=== PATIENT | female | born 1960 | race Caucasian/White ===

== ENCOUNTER → 2023-08-08 11:19 | Outpatient (REF) | payer MEDICARE, OTHER, SELFPAY ==
[2023-08-08 12:50] LABS: % Eosinophils 1.8 % (0-6); % Immature Granulocytes 1.2 % (0-0.5); % Monocytes 8.2 % (1.7-9.3); % Neutrophils 68.8 % (42.2-75.2); Absolute Basophils 0.1 10^3/uL (0-0.2); Absolute Eosinophils 0.1 10^3/uL (0-0.7); Absolute Immature Granulocytes 0.1 10^3/uL (0-0.05); Absolute Lymphocytes 1.4 10^3/uL (1.2-3.4); Absolute Monocytes 0.6 10^3/uL (0.1-0.6); Hematocrit 40.2 % (37.0-47.0); Hemoglobin 13.4 g/dL (12.0-16.0); Mean Corp Hgb Conc. 33.3 g/dL (33.0-37.0); Mean Corpuscular Hgb 32.8 pg (27.0-31.0); Mean Corpuscular Volume 98.3 fL (81.0-99.0); Mean Platelet Volume 9.5 fL (7.4-10.4); Nucleated Red Blood Cells % 0 %; Platelet Count 268 10^3/uL (130-400); Red Blood Cell Count 4.09 10^6/uL (4.20-5.40); Urine Albumin 3+ (Neg - Trace); Urine Bilirubin 1+ (Negative); Urine Character Bloody (Clear); Urine Color Red; Urine Glucose Negative (Negative); Urine Ketone 1+ (Negative); Urine Leukocyte Trace (Negative); Urine Nitrite Negative (Negative); Urine Occult Blood 4+ (Negative); Urine Urobilinogen Negative (Neg - 1+); White Blood Cell Count 7.3 10^3/uL (4.8-10.8)
[2023-08-08 12:58] LABS: PT 36.5 Sec (11.4-14.6)
[2023-08-08 13:09] LABS: Urine Mucus Few; Urine Red Blood Cell >100 /HPF (0-2); Urine Squamous Cell 0-2 /LPF (Few)
[2023-08-08 13:11] LABS: Urine Bacteria Few (Negative)
== END ==
LOC: REG 11:19
PROVIDERS: ATTENDING PHYSICIAN Internal Medicine Cardiovascular Disease; FAMILY PHYSICIAN Nurse Practitioner Adult Health
DX: Z95.2 Presence of prosthetic heart valve (principal); Z79.01 Long term (current) use of anticoagulants; R31.9 Hematuria, unspecified
CPT/HCPCS: 36415; 81003; 81015; 85025; 85610; 87077; 87086

== ENCOUNTER 2023-08-09 08:46 | Emergency (ER) | payer MEDICARE, OTHER, SELFPAY ==
[2023-08-09 08:50] VITALS: BP 153/90
--- NOTE | 2023-08-09 09:25 | ED.GENMED ---
History of Present Illness
General
Chief Complaint: Urinary Symptoms
Source: patient
Exam Limitations: none
Time Seen by Provider: 08/09/23 09:04
Nursing documentation reviewed up to this point in time: agreed with
Travel History
Have you had any contact with someone who has COVID-19?: No
Do you have any symptoms of coronavirus? Fever > 100 degrees, chills, cough, shortness of breath, sore throat, loss of taste or smell, muscle aches, or headache?: No
History of Present Illness
History of Present Illness:
Patient is a 63 female who presents to the ER for evaluation of hematuria. Patient started with hematuria 2 days ago. She is on Coumadin for mechanical valve. She saw her mint machine operator, Dr. Sharmaine Randle yesterday and had her INR checked which
was 3.6. She also reports she had a hemoglobin checked and it was normal. She presents today because of persistent hematuria. She denies any urinary frequency urgency or dysuria. She denies any back pain abdominal pain.
Past History
Past History
ED Past Medical History: HTN, Valvular disease (), Psychiatric (Anxiety, depression), Other (Hypertension, colon polyps, uterine fibroid) and Other (Vertigo)
ED Past Surgical History: Cardiac (AVR), and Gynecological (Endometrial ablation 2002)
Social History
Tobacco: Non-smoker
Alcohol: None
Drug: None
Personal:
Living: with family
Employment: Employed (RN)
Family History
Family History: Other (nc)
Review of Systems
Review of Systems
Allergies reviewed?: Yes
All Other Systems: ROS reviewed and negative except as documented in HPI and ROS
Constitutional: Reports no symptoms
Respiratory: Reports no symptoms
Cardiac: Reports no symptoms
ABD/GI: Denies abdominal pain, nausea or vomiting
: Reports bleeding; Denies dysuria, frequency, flank pain, incontinence, difficulty voiding, urgency or discharge
Musculoskeletal: Reports no symptoms
Skin: Reports no symptoms
Neurological: Reports no symptoms
Hematologic/Lymphatic: Reports no symptoms
Psychiatric: Reports no symptoms
Phy Exam
General Physical Exam
General Presentation: no apparent distress
General age: appears stated age
General Skin: warm and dry
General Habitus: elderly
General Mental: alert
General Hydration: appears well hydrated
Gastrointestinal Exam
Gastrointestinal Exam: normal bowel sounds, non tender and soft
Neurological Exam
Neurological Exam: alert and oriented x3
Musculoskeletal Exam
Musculoskeletal Exam: full ROM
Skin Exam
Skin Exam: normal color and warm/dry
Psychiatric Exam
Psychiatric Exam: normal mood/affect
Course
Orders/Labs/Results
Orders:
Orders
08/09/23 09:36
Complete Blood Count/With Diff Urgent
Comprehensive Metabolic Panel Urgent
Prothrombin Time Urgent
08/09/23 09:40
UA Reflex to Culture [Urinalysis Reflex To Culture] Urgent
Date Specimen was Collected: 08/09/23
Time Specimen was Collected: 09:39
Urine Microscopic Reflex Cult Urgent
Urine Culture Urgent
MADIE Source: U
Specimen Description:
Date Specimen was Collected: 08/09/23
Time Specimen was Collected: 09:39
08/09/23 10:13
CT Abd/pel Without Iv Or Oral Urgent
Comment:
Reason For Exam: hematuria
08/09/23 12:[address] Urography Urgent
Comment:
Reason For Exam: hematuria
08/09/23 14:42
Cephalexin Monohydrate [Keflex] 500 mg PO NOW STA
08/09/23 14:46
Cephalexin Monohydrate [Keflex] 500 mg PO NOW STA
Abnormal Lab Results
08/09/23 08/09/23
09:36 09:40
RBC 3.92 L 10^6/uL
(4.20-5.40)
MCH 32.9 H pg
(27.0-31.0)
Abs Immat Gran (auto) 0.1 H 10^3/uL
(0-0.05)
Absolute Lymphs (auto) 1.1 L 10^3/uL
(1.2-3.4)
Immature Gran % 0.9 H %
(0-0.5)
Lymphocytes % 19.8 L %
(20.5-51.1)
PT 35.1 H Sec
(11.4-14.6)
Glucose 103 H mg/dl
(70-99)
ALT 41 H U/L
(0-35)
Total Protein 6.1 L g/dl
(6.3-8.2)
Urine Ketones 1+ A
(Negative)
Ur Occult Blood Reflex 4+ A
(Negative)
Urine RBC >100 A /HPF
(0-2)
Urine Bacteria (Reflex) Many A
(Negative)
Urine Albumin (Reflex) 3+ A
(Neg - Trace)
08/09/23 09:36
08/09/23 09:36
Vital Signs
Initial and Last Documented VS:
Initial Vital Signs
Temp Pulse Resp BP Pulse Ox
98.3 F 78 16 153/90 97
08/09/23 08:50 08/09/23 08:50 08/09/23 08:50 08/09/23 08:50 08/09/23 08:50
Last Documented Vital Signs
Temp Pulse Resp BP Pulse Ox
98.3 F 72 18 117/68 95
08/09/23 08:50 08/09/23 14:16 08/09/23 14:16 08/09/23 14:16 08/09/23 14:16
Air Tool Operator consulted with Physician
Air Tool Operator consulted with physician?: Yes
Name of Physician Consulted: Sourav
MDM/Problems Addressed
Differential Diagnosis Includes:
not limited to: Renal colic, hemorrhagic cystitis, UTI, mass
MDM/Problems Addressed:
Patient is a 63-year-old female who presented with hematuria for the past 2 days. She is on Coumadin for mechanical valve. She was seen by mint machine operator yesterday had urinalysis hemoglobin and INR. She presents back today with continued hematuria.
She denies any urinary frequency urgency or dysuria. Denies any abdominal pain back pain nausea vomiting fever chills. She presents afebrile with a normal white count of 5.7 stable hemoglobin at 12.9 stable platelets of 224. Patient with normal
renal function, urinalysis does show greater than 100 RBCs and white blood cells 6-10. Patient initially had a CAT scan without contrast which was unremarkable for stone.
Case reviewed with urology however he does recommend CT urogram there is a 6 cm fibroid and incidental 8 mm left renal cyst as discussed with urology Dr. Sauceda pt's urine from yesterday appears to be growing strep. Will treat hemorrhagic
cystitis/UTI however pt will need a routine cystoscopy.
I spoke with DR Mack who will have his nurses call patient and arrange Coumadin dosing. Will treat with Keflex with close outpatient follow-up with urology.
I spoke with Romina Tillman one of the Coumadin nurses .since patient is going to be started on antibiotic she would like patient to continue her current dose of Coumadin until her INR is checked she will need to get her INR retested in 4 days.
Patient no acute distress will DC with Keflex with instructions on Coumadin instructions and follow-up with urology
*Radiology
Radiology exam reviewed: radiology read reviewed
*Pulse Oximetry
Patient hypoxic: no
*Critical Care Note
Total Time (30-74mins, 75-104mins- exclusive of procedures): Not Applicable
ED Attending Note
-
Portions of this chart may have been created with voice recognition software.� Occasional wrong word or��sound alike� substitutions may have occurred due to the inherent limitations of voice recognition software.
Discharge Plan
Departure
Patient Disposition: Home (Routine Discharge)
Date of Disposition: 08/09/23
Time of Disposition: 14:56
Patient with high blood pressure during this ER visit?: Yes
Condition: Fair
Covid-19: Not Applicable
Discharge Problem:
Acute hemorrhagic cystitis
Instructions: Urinary Tract Infection, Adult (DC), BLOOD PRESSURE
Prescriptions:
New
cephalexin 500 mg capsule
500 mg PO Q6H Qty: 28 0RF
No Action
atorvastatin 10 MG tablet
10 mg PO DAILY
lisinopril 10 MG tablet
20 mg PO DAILY
escitalopram oxalate 20 MG tablet
20 mg PO DAILY
warfarin [Jantoven] 1 MG tablet
8.5 mg PO SUMOTUTHFRSA@1700
oxybutynin chloride 5 mg tablet
5 mg PO DAILY Qty: 20 0RF
Theragen Tablet
1 tab PO DAILY
quetiapine [Seroquel] 100 mg Tablet
100 mg PO HS
trospium 20 mg Tablet
20 mg PO BIDPRN PRN (Reason: bladder spasms)
nebivolol [Bystolic] 20 mg Tablet
20 mg PO DAILY
Referrals:
Paramjit Pagan MD [Family Provider] -
Maxim Sauceda MD [Active] -
Activity Restrictions/Additional Instructions:
As discussed you have a a urine infection. Take antibiotic as directed. This medication was sent to your pharmacy.
You will need to follow-up with urology for further evaluation and cystoscopy. Please give the office a call today to schedule an appointment as soon as possible. Also it is recommended that have your INR checked in 4 days and follow-up with
Coumadin nurses for further instruction on Coumadin instruction.
Stay well-hydrated
Return if any worsening of symptoms if increased blood in urine clots difficulty urinating abdominal pain back pain fever chills nausea vomiting or any further concerns.
Interventions
Interventions:
*Risk Screen - Suicide Last Done: 08/09/23 09:41
*General Assessment Last Done: 08/09/23 08:50
*Neglect/Abuse Screening Last Done: 08/09/23 09:41
*ED COVID-19 Vaccine History Last Done: 08/09/23 08:50
*Nursing Disposition Last Done: 08/09/23 15:17
ED-Female Genitourinary Assessment Last Done: 08/09/23 09:41
Discharge Date and Time
Discharge Date/Time: 08/09/23 15:17
[2023-08-09 09:41] VITALS: BMI 31.9
[2023-08-09 09:50] LABS: % Basophils 0.9 % (0-2); % Eosinophils 1.9 % (0-6); % Immature Granulocytes 0.9 % (0-0.5); % Lymphocytes 19.8 % (20.5-51.1); % Monocytes 8.9 % (1.7-9.3); % Neutrophils 67.6 % (42.2-75.2); Absolute Basophils 0.1 10^3/uL (0-0.2); Absolute Eosinophils 0.1 10^3/uL (0-0.7); Absolute Immature Granulocytes 0.1 10^3/uL (0-0.05); Absolute Lymphocytes 1.1 10^3/uL (1.2-3.4); Absolute Monocytes 0.5 10^3/uL (0.1-0.6); Absolute Neutrophils 3.9 10^3/uL (1.4-6.5); Hematocrit 37.6 % (37.0-47.0); Hemoglobin 12.9 g/dL (12.0-16.0); Mean Corp Hgb Conc. 34.3 g/dL (33.0-37.0); Mean Corpuscular Hgb 32.9 pg (27.0-31.0); Mean Corpuscular Volume 95.9 fL (81.0-99.0); Nucleated Red Blood Cells % 0 %; Platelet Count 224 10^3/uL (130-400); Red Blood Cell Count 3.92 10^6/uL (4.20-5.40); Red Cell Dist. Width 12.9 % (11.5-14.5); White Blood Cell Count 5.7 10^3/uL (4.8-10.8)
[2023-08-09 10:01] LABS: INR 3.43; PT 35.1 Sec (11.4-14.6)
[2023-08-09 10:05] LABS: Urine Albumin 3+ (Neg - Trace); Urine Bilirubin Negative (Negative); Urine Character Bloody (Clear); Urine Color Red; Urine Glucose Negative (Negative); Urine Ketone 1+ (Negative); Urine Leukocyte Negative (Negative); Urine Nitrite Negative (Negative); Urine Occult Blood 4+ (Negative); Urine Specific Gravity 1.015 (<1.030); Urine Urobilinogen Negative (Neg - 1+); Urine pH 6.5 (5.0-9.0)
[2023-08-09 10:06] LABS: ALT (SGPT) 41 U/L (0-35); AST (SGOT) 34 U/L (14-36); Albumin 3.6 g/dl (3.5-5.0); Alkaline Phosphatase 107 U/L (38-126); Blood Urea Nitrogen 11 mg/dl (7-17); Calcium 8.8 mg/dl (8.4-10.2); Carbon Dioxide 27 mmol/L (22-30); Chloride 106 mmol/L (98-107); Estimated Creatinine Clearance 78 ml/min; Glucose 103 mg/dl (70-99); Potassium 4.3 mmol/L (3.5-5.1); Sodium 135 mmol/L (135-145); Total Bilirubin 0.6 mg/dl (0.2-1.3); Total Protein 6.1 g/dl (6.3-8.2); eGFR > 60.00
[2023-08-09 10:17] LABS: Urine Bacteria Many (Negative); Urine Red Blood Cell >100 /HPF (0-2); Urine Squamous Cell 0-2 /LPF (Few)
[2023-08-09 14:16] VITALS: BP 117/68
[2023-08-09] MEDS: KEFLEX 500 MG PO (15:06)
== END 2023-08-09 15:17 | disposition home or self-care (01) ==
LOC: EMR 08:46
PROVIDERS: Nurse Practitioner; EMERGENCY PHYSICIAN Student in an Organized Health Care Education/Training Program; FAMILY PHYSICIAN Internal Medicine
DX: N30.01 Acute cystitis with hematuria (principal); I10 Essential (primary) hypertension; I38 Endocarditis, valve unspecified; F41.9 Anxiety disorder, unspecified; F32.A Depression, unspecified; D25.9 Leiomyoma of uterus, unspecified; Z79.01 Long term (current) use of anticoagulants; Z87.19 Personal history of other diseases of the digestive system; Z95.2 Presence of prosthetic heart valve
CPT/HCPCS: 99284; 74176; 74178; 80053; 81003; 81015; 85025; 85610; 87086; Q9967

== ENCOUNTER 2023-08-11 05:18 | Emergency (ER) | payer MEDICARE, OTHER, SELFPAY ==
[2023-08-11 05:22] VITALS: BP 190/100
[2023-08-11] MEDS: ZOFRAN 4 MG IV (05:48)
[2023-08-11] MEDS: TORADOL 15 MG IV (05:51)
--- NOTE | 2023-08-11 06:04 | ED.GENMED ---
History of Present Illness
General
Chief Complaint: Flank Pain
Time Seen by Provider: 08/11/23 06:03
Travel History
Have you had any contact with someone who has COVID-19?: No
Do you have any symptoms of coronavirus? Fever > 100 degrees, chills, cough, shortness of breath, sore throat, loss of taste or smell, muscle aches, or headache?: No
History of Present Illness
History of Present Illness:
HPI: The patient was here 2 days ago diagnosed with hemorrhagic cystitis. Overnight around 3 AM she had rather significant right flank pain and has been unable to void. She states she is just 'dribbling' urine. Prior to the start of my shift, she
was given Toradol and Zofran and now the right flank pain has resolved however the dysuria persists.
EXAM:
GENERAL: Well appearing in no distress however she does appear somewhat upset that she is 'unable to pee'
HEENT: Moist oral mucosa
CARDIOVASCULAR: No murmurs, clicks noted in the right upper sternal border, normal heart rate and rhythm, No chest wall tenderness
PULMONARY: No respiratory distress, breath sounds are clear and equal
ABDOMEN: Soft with no peritoneal signs, no tenderness
NEUROLOGIC: Excellent strength all extremities, no coordination deficits
PSYCHIATRIC: Appropriate mental status, normal insight and judgement
EXTREMITIES: Nontender, no edema, moves all extremities equally
SKIN: No rash, no lesions
ED COURSE:
6:10 AM: I initially evaluated patient
NUMBER AND COMPLEXITY OF PROBLEMS ADDRESSED AT THE ENCOUNTER
� Chronic conditions affecting care: High blood pressure, hyperlipidemia, has had GI bleed requiring blood transfusion, aortic stenosis
� Acute Exacerbation and/or Progression of Chronic Illness: This is an acute problem
� Differential Diagnosis includes: Hemorrhagic cystitis, ureteral stone, urinary clots leading to obstruction
AMOUNT AND/OR COMPLEXITY OF DATA TO BE REVIEWED AND ANALYZED
� I performed an independent evaluation of and my interpretation is:
EKG:
CT:
X-rays:
Laboratory Studies: White count and hemoglobin are normal, renal function again normal
Other:
� Review of other/old records: I reviewed noncontrast CT from 2 days ago that was unremarkable, the patient did have a CT urogram that also was relatively unremarkable other than a uterine fibroid and 8 mm left renal cyst. Urine
culture from 2 days ago suggested contamination.
� Clinical information was obtained by an independent historian: None needed
� Prescriptions/Medications Considered but not given:
� Further testing considered but not performed: Considered CT imaging however the patient had CT imaging 2 days prior.
RISK OF COMPLICATIONS AND/OR MORBIDITY OR MORTALITY OF PATIENT MANAGEMENT
� Social determinants of health affecting care: Lives at home
� Discussion with other providers: Notified Dr. Garcia at 6:45 AM�he recommends stopping trospium, starting tamsulosin and starting Pyridium.
� Escalation of care including admission/observation vs risk of discharge considered: Patient's bladder scan is only 58 mL at the most. She appears very comfortable after Toradol and Zofran were given. She is already compliant
with trospium. White count and hemoglobin normal. INR from 2 days ago was 3.4. On reassessment at 6:45 AM, she has some discomfort in the upper abdomen described as 'a pit in my stomach' however she appears fairly comfortable. On reassessment at
7:15 AM, the patient continues to have sensation of urinary urgency, she does have grossly bloody urine. She is already on antibiotic. Encouraged follow-up with urology.
Past History
Past History
ED Past Medical History: HTN, Valvular disease (), Psychiatric (Anxiety, depression), Other (Hypertension, colon polyps, uterine fibroid) and Other (Vertigo)
ED Past Surgical History: Cardiac (AVR), and Gynecological (Endometrial ablation 2002)
Social History
Tobacco: Non-smoker
Alcohol: None
Drug: None
Personal:
Living: with family
Employment: Employed (RN)
Family History
Family History: Other (nc)
Phy Exam
Physical Exam
Physical Exam:
See HPI
Course
Orders/Labs/Results
Orders:
Orders
08/11/23 05:47
Ketorolac [Toradol] 15 mg .ROUTE .STK-MED ONE
Ondansetron Injectable [Zofran] 4 mg .ROUTE .STK-MED ONE
Ondansetron Injectable [Zofran] 4 mg IV NOW STA
08/11/23 05:51
Ketorolac [Toradol] 15 mg IV NOW STA
08/11/23 06:12
Bladder Scan- Treatment ONCE
08/11/23 06:14
Basic Metabolic Panel Urgent
Complete Blood Count/With Diff Urgent
0.9% Sodium Chloride 1000 ml [Nss] 1,000 ml IV BOLUS
08/11/23 06:45
Phenazopyridine HCl [Pyridium] 200 mg PO NOW STA
Tamsulosin [Flomax] 0.4 mg PO NOW STA
08/11/23 07:13
Urinalysis Reflex To Culture Urgent
Date Specimen was Collected: 08/11/23
Time Specimen was Collected: 06:46
Urine Microscopic Reflex Cult Urgent
Abnormal Lab Results
08/11/23 08/11/23
06:14 07:13
MCH 32.5 H pg
(27.0-31.0)
Abs Immat Gran (auto) 0.1 H 10^3/uL
(0-0.05)
Absolute Monos (auto) 0.7 H 10^3/uL
(0.1-0.6)
Immature Gran % 1.1 H %
(0-0.5)
Lymphocytes % 17.5 L %
(20.5-51.1)
Chloride 108 H mmol/L
(98-107)
Glucose 150 H mg/dl
(70-99)
Urine Ketones Trace A
(Negative)
Ur Occult Blood Reflex 4+ A
(Negative)
Urine Bilirubin 1+ A
(Negative)
Leukocyte Esterase Rfl Trace A
(Negative)
Urine Albumin (Reflex) 3+ A
(Neg - Trace)
08/11/23 06:14
08/11/23 06:14
Vital Signs
Initial and Last Documented VS:
Initial Vital Signs
Temp Pulse Resp BP Pulse Ox
99.3 F 83 20 190/100 98
08/11/23 05:22 08/11/23 05:22 08/11/23 05:22 08/11/23 05:22 08/11/23 05:22
Last Documented Vital Signs
Temp Pulse Resp BP Pulse Ox
98.5 F 86 16 136/75 99
08/11/23 07:24 08/11/23 07:24 08/11/23 07:24 08/11/23 07:24 08/11/23 07:24
*Critical Care Note
Total Time (30-74mins, 75-104mins- exclusive of procedures): Not Applicable
ED Attending Note
-
Portions of this chart may have been created with voice recognition software.� Occasional wrong word or��sound alike� substitutions may have occurred due to the inherent limitations of voice recognition software.
Discharge Plan
Departure
Patient Disposition: Home (Routine Discharge)
Date of Disposition: 08/11/23
Time of Disposition: 07:15
Patient with high blood pressure during this ER visit?: Yes
Discharge Problem:
Acute hemorrhagic cystitis
Instructions: Flank Pain (DC), BLOOD PRESSURE
Prescriptions:
New
tamsulosin 0.4 mg capsule
0.4 mg PO DAILY Qty: 30 0RF
phenazopyridine 200 mg tablet
200 mg PO TID PRN (Reason: Pain) Qty: 12 0RF
No Action
atorvastatin 10 MG tablet
10 mg PO DAILY
lisinopril 10 MG tablet
20 mg PO DAILY
escitalopram oxalate 20 MG tablet
20 mg PO DAILY
warfarin [Jantoven] 1 MG tablet
8.5 mg PO SUMOTUTHFRSA@1700
Theragen Tablet
1 tab PO DAILY
quetiapine [Seroquel] 100 mg Tablet
100 mg PO HS
trospium 20 mg Tablet
20 mg PO BIDPRN PRN (Reason: bladder spasms)
nebivolol [Bystolic] 20 mg Tablet
20 mg PO DAILY
cephalexin 500 mg capsule
500 mg PO Q6H Qty: 28 0RF
Referrals:
Deshawn Spence MD [Active] - Follow up in 2-3 days
Activity Restrictions/Additional Instructions:
I notified Dr. Garcia, Dr. Spence's partner. Dr. Garcia recommends you stop trospium. He recommends you start tamsulosin 0.4 mg daily and also start Pyridium 200 mg 3 times a day as needed. I sent these prescriptions to your pharmacy.
Interventions
Interventions:
*Risk Screen - Suicide Last Done: 08/11/23 05:22
*General Assessment Last Done: 08/11/23 05:22
*Neglect/Abuse Screening Last Done: 08/11/23 05:22
ED- Fall Risk Assessment Last Done: 08/11/23 05:22
*ED COVID-19 Vaccine History Last Done: 08/11/23 05:22
*Nursing Disposition Last Done: 08/11/23 07:36
OF-Zebwzg-[facility] Assessment Last Done: 08/11/23 05:54
ED-Female Genitourinary Assessment Last Done: 08/11/23 05:54
Discharge Date and Time
Discharge Date/Time: 08/11/23 07:37
[2023-08-11] MEDS: NSS 1000 IV (06:20)
[2023-08-11 06:30] LABS: % Basophils 0.7 % (0-2); % Eosinophils 1.9 % (0-6); % Immature Granulocytes 1.1 % (0-0.5); % Lymphocytes 17.5 % (20.5-51.1); % Monocytes 8.9 % (1.7-9.3); % Neutrophils 69.9 % (42.2-75.2); Absolute Basophils 0.1 10^3/uL (0-0.2); Absolute Eosinophils 0.2 10^3/uL (0-0.7); Absolute Immature Granulocytes 0.1 10^3/uL (0-0.05); Absolute Lymphocytes 1.5 10^3/uL (1.2-3.4); Absolute Monocytes 0.7 10^3/uL (0.1-0.6); Absolute Neutrophils 5.8 10^3/uL (1.4-6.5); Hematocrit 42.3 % (37.0-47.0); Mean Corp Hgb Conc. 33.1 g/dL (33.0-37.0); Mean Corpuscular Hgb 32.5 pg (27.0-31.0); Mean Corpuscular Volume 98.1 fL (81.0-99.0); Mean Platelet Volume 9.5 fL (7.4-10.4); Nucleated Red Blood Cells % 0 %; Platelet Count 270 10^3/uL (130-400); Red Blood Cell Count 4.31 10^6/uL (4.20-5.40); White Blood Cell Count 8.3 10^3/uL (4.8-10.8)
[2023-08-11 06:42] LABS: Blood Urea Nitrogen 13 mg/dl (7-17); Calcium 9.4 mg/dl (8.4-10.2); Carbon Dioxide 22 mmol/L (22-30); Chloride 108 mmol/L (98-107); Glucose 150 mg/dl (70-99); Potassium 4.4 mmol/L (3.5-5.1); Sodium 137 mmol/L (135-145); eGFR > 60.00
[2023-08-11 07:24] VITALS: BP 136/75; BMI 28.9
[2023-08-11] MEDS: FLOMAX 0.400000000000000022 MG PO (07:27)
[2023-08-11] MEDS: Pyridium 200 MG PO (07:27)
[2023-08-11 07:47] LABS: Urine Albumin 3+ (Neg - Trace); Urine Bilirubin 1+ (Negative); Urine Character Slightly Cloudy (Clear); Urine Color Brown; Urine Glucose Negative (Negative); Urine Ketone Trace (Negative); Urine Leukocyte Trace (Negative); Urine Nitrite Negative (Negative); Urine Occult Blood 4+ (Negative); Urine Urobilinogen Negative (Neg - 1+)
[2023-08-11 08:13] LABS: Urine Bacteria Moderate (Negative); Urine Red Blood Cell >100 /HPF (0-2)
== END 2023-08-11 07:37 | disposition home or self-care (01) ==
LOC: EMR 05:18
PROVIDERS: EMERGENCY PHYSICIAN Emergency Medicine; FAMILY PHYSICIAN Internal Medicine
DX: N30.01 Acute cystitis with hematuria (principal); I10 Essential (primary) hypertension; I35.0 Nonrheumatic aortic (valve) stenosis; F32.A Depression, unspecified; F41.9 Anxiety disorder, unspecified; D25.9 Leiomyoma of uterus, unspecified; N28.1 Cyst of kidney, acquired; Z79.01 Long term (current) use of anticoagulants; Z88.8 Allergy status to other drugs, medicaments and biological substances
CPT/HCPCS: 99284; 96374; 96375; 96361; 80048; 81003; 81015; 85025; 87086

== ENCOUNTER → 2023-08-24 15:12 | Outpatient (REF) | payer MEDICARE, OTHER, SELFPAY ==
[2023-08-24 16:01] LABS: INR 5.83; PT 52.7 Sec (11.4-14.6)
== END ==
LOC: REG 15:12
PROVIDERS: ATTENDING PHYSICIAN Internal Medicine Cardiovascular Disease; FAMILY PHYSICIAN Nurse Practitioner Adult Health
DX: Z95.2 Presence of prosthetic heart valve (principal); Z79.01 Long term (current) use of anticoagulants
CPT/HCPCS: 36415; 85610

== ENCOUNTER → 2023-08-28 12:30 | Outpatient (REF) | payer MEDICARE, OTHER, SELFPAY ==
[2023-08-28 14:39] LABS: INR 1.08; PT 13.8 Sec (11.4-14.6)
== END ==
LOC: REG 12:30
PROVIDERS: ATTENDING PHYSICIAN Internal Medicine Cardiovascular Disease; FAMILY PHYSICIAN Nurse Practitioner Adult Health
DX: Z95.2 Presence of prosthetic heart valve (principal); Z79.01 Long term (current) use of anticoagulants
CPT/HCPCS: 36415; 85610

== ENCOUNTER → 2023-09-04 10:27 | Outpatient (REF) | payer MEDICARE, OTHER, SELFPAY ==
[2023-09-04 11:31] LABS: ALT (SGPT) 59 U/L (0-35); AST (SGOT) 38 U/L (14-36); Albumin 3.8 g/dl (3.5-5.0); Alkaline Phosphatase 110 U/L (38-126); Blood Urea Nitrogen 15 mg/dl (7-17); Calcium 9.6 mg/dl (8.4-10.2); Carbon Dioxide 28 mmol/L (22-30); Chloride 105 mmol/L (98-107); Glucose 113 mg/dl (70-99); HDL Cholesterol 33 mg/dl; LDL Cholesterol, Calculated 92 mg/dl; Potassium 4.5 mmol/L (3.5-5.1); Sodium 140 mmol/L (135-145); Total Bilirubin 0.6 mg/dl (0.2-1.3); Total Cholesterol 171 mg/dl (50-199); Total Protein 6.9 g/dl (6.3-8.2); Triglyceride 232 mg/dl (10-149); Very Low Density Lipoprotein 46 mg/dl (0-30); eGFR > 60.00
[2023-09-04 11:51] LABS: Microalbumin, Random Urine 0.6 mg/dl (0.6-1.7)
[2023-09-04 12:13] LABS: Glycohemoglobin (HgbA1c) 6.2 % (4.0-5.6)
== END ==
LOC: REG 10:27
PROVIDERS: ATTENDING PHYSICIAN Nurse Practitioner Adult Health; REFERRING PHYSICIAN Internal Medicine Cardiovascular Disease
DX: E11.9 Type 2 diabetes mellitus without complications (principal); I10 Essential (primary) hypertension; E78.5 Hyperlipidemia, unspecified
CPT/HCPCS: 36415; 80053; 80061; 82043; 83036

== ENCOUNTER → 2023-10-05 14:36 | Outpatient (REF) | payer MEDICARE, OTHER, SELFPAY ==
[2023-10-05 15:42] LABS: INR 3.52; PT 35.3 Sec (11.4-14.6)
== END ==
LOC: REG 14:36
PROVIDERS: ATTENDING PHYSICIAN Internal Medicine Cardiovascular Disease
DX: Z95.2 Presence of prosthetic heart valve (principal); Z79.01 Long term (current) use of anticoagulants
CPT/HCPCS: 36415; 85610

== ENCOUNTER → 2023-10-19 08:40 | Outpatient (REF) | payer MEDICARE, OTHER, SELFPAY ==
[2023-10-19 10:19] LABS: % Basophils 0.8 % (0-2); % Eosinophils 1.9 % (0-6); % Immature Granulocytes 0.9 % (0-0.5); % Lymphocytes 23.7 % (20.5-51.1); % Monocytes 6.2 % (1.7-9.3); % Neutrophils 66.5 % (42.2-75.2); Absolute Basophils 0.1 10^3/uL (0-0.2); Absolute Eosinophils 0.1 10^3/uL (0-0.7); Absolute Immature Granulocytes 0.1 10^3/uL (0-0.05); Absolute Lymphocytes 1.8 10^3/uL (1.2-3.4); Absolute Monocytes 0.5 10^3/uL (0.1-0.6); Hematocrit 43.8 % (37.0-47.0); Hemoglobin 14.2 g/dL (12.0-16.0); Mean Corp Hgb Conc. 32.4 g/dL (33.0-37.0); Mean Corpuscular Hgb 31.9 pg (27.0-31.0); Mean Corpuscular Volume 98.4 fL (81.0-99.0); Mean Platelet Volume 9.7 fL (7.4-10.4); Nucleated Red Blood Cells % 0 %; Platelet Count 241 10^3/uL (130-400); Red Blood Cell Count 4.45 10^6/uL (4.20-5.40); Red Cell Dist. Width 12.8 % (11.5-14.5); White Blood Cell Count 7.5 10^3/uL (4.8-10.8)
[2023-10-19 10:28] LABS: INR 3.67; PT 36.5 Sec (11.4-14.6)
[2023-10-19 10:53] LABS: ALT (SGPT) 53 U/L (0-35); AST (SGOT) 35 U/L (14-36); Alkaline Phosphatase 121 U/L (38-126); Blood Urea Nitrogen 11 mg/dl (7-17); Calcium 9.5 mg/dl (8.4-10.2); Carbon Dioxide 28 mmol/L (22-30); Chloride 107 mmol/L (98-107); Glucose 114 mg/dl (70-99); Iron 81 ug/dl (37-170); Potassium 4.1 mmol/L (3.5-5.1); Sodium 138 mmol/L (135-145); Total Bilirubin 0.3 mg/dl (0.2-1.3); eGFR > 60.00
[2023-10-19 11:01] LABS: Percent Saturation 26 % (20-50); Total Iron Binding Capacity 303 ug/dl (265-497)
[2023-10-19 11:14] LABS: TSH 1.38 uIU/ml (0.47-4.68)
[2023-10-19 11:18] LABS: Ferritin 78.2 ng/ml (11.1-264.0)
[2023-10-19 11:33] LABS: Vitamin B12 425 pg/ml (239-931)
[2023-10-19 12:16] LABS: Erythrocyte Sed Rate 22 mm/hour (0-20)
[2023-10-19 12:20] LABS: Glycohemoglobin (HgbA1c) 6.4 % (4.0-5.6)
== END ==
LOC: REG 08:40
PROVIDERS: ATTENDING PHYSICIAN Internal Medicine Cardiovascular Disease; FAMILY PHYSICIAN Nurse Practitioner Adult Health; REFERRING PHYSICIAN Psychiatry & Neurology Psychiatry
DX: Z95.2 Presence of prosthetic heart valve (principal); Z79.01 Long term (current) use of anticoagulants; F32.2 Major depressive disorder, single episode, severe without psychotic features; R53.83 Other fatigue; R63.5 Abnormal weight gain; G25.81 Restless legs syndrome
CPT/HCPCS: 36415; 80053; 82306; 82607; 82728; 83036; 83540; 83550; 84443; 85025; 85610; 85652

== ENCOUNTER → 2023-11-12 10:10 | Outpatient (REF) | payer MEDICARE, OTHER, SELFPAY ==
[2023-11-12 11:13] LABS: INR 3.01; PT 31.2 Sec (11.4-14.6)
== END ==
LOC: REG 10:10
PROVIDERS: ATTENDING PHYSICIAN Internal Medicine Cardiovascular Disease; FAMILY PHYSICIAN Nurse Practitioner Adult Health
DX: Z95.2 Presence of prosthetic heart valve (principal); Z79.01 Long term (current) use of anticoagulants
CPT/HCPCS: 36415; 85610

== ENCOUNTER → 2023-11-27 15:25 | Outpatient (REF) | payer MEDICARE, OTHER, SELFPAY ==
[2023-11-27 16:56] LABS: INR 4.77; PT 44.9 Sec (11.4-14.6)
== END ==
LOC: REG 15:25
PROVIDERS: ATTENDING PHYSICIAN Internal Medicine Cardiovascular Disease; FAMILY PHYSICIAN Nurse Practitioner Adult Health
DX: Z95.2 Presence of prosthetic heart valve (principal); Z79.01 Long term (current) use of anticoagulants
CPT/HCPCS: 36415; 85610

== ENCOUNTER → 2023-11-28 15:28 | Outpatient (REF) | payer MEDICARE, OTHER, SELFPAY | LOC: RCS 15:28 | PROVIDERS: ATTENDING PHYSICIAN Internal Medicine Cardiovascular Disease; FAMILY PHYSICIAN Nurse Practitioner Adult Health | DX: Z95.2 Presence of prosthetic heart valve (principal); R00.2 Palpitations; Z79.01 Long term (current) use of anticoagulants | CPT/HCPCS: 93306 ==

== ENCOUNTER → 2023-12-11 09:00 | Outpatient (REF) | payer MEDICARE, OTHER, SELFPAY ==
[2023-12-11 10:14] LABS: INR 4.15; PT 40.2 Sec (11.4-14.6)
== END ==
LOC: REG 09:00
PROVIDERS: ATTENDING PHYSICIAN Internal Medicine Cardiovascular Disease; FAMILY PHYSICIAN Nurse Practitioner Adult Health
DX: Z95.2 Presence of prosthetic heart valve (principal); Z79.01 Long term (current) use of anticoagulants
CPT/HCPCS: 36415; 85610

== ENCOUNTER → 2024-01-07 06:48 | Outpatient (REF) | payer MEDICARE, OTHER, SELFPAY ==
[2024-01-07 08:00] LABS: INR 3.37; PT 34.1 Sec (11.4-14.6)
== END ==
LOC: REG 06:48
PROVIDERS: ATTENDING PHYSICIAN Internal Medicine Cardiovascular Disease
DX: Z95.2 Presence of prosthetic heart valve (principal); Z79.01 Long term (current) use of anticoagulants
CPT/HCPCS: 36415; 85610

== ENCOUNTER → 2024-01-29 06:41 | Outpatient (REF) | payer MEDICARE, OTHER, SELFPAY ==
[2024-01-29 08:09] LABS: INR 3.09; PT 32.3 Sec (11.4-14.6)
== END ==
LOC: REG 06:41
PROVIDERS: ATTENDING PHYSICIAN Internal Medicine Cardiovascular Disease; FAMILY PHYSICIAN Nurse Practitioner Adult Health
DX: Z95.2 Presence of prosthetic heart valve (principal); Z79.01 Long term (current) use of anticoagulants
CPT/HCPCS: 36415; 85610

== ENCOUNTER → 2024-03-11 12:55 | Outpatient (REF) | payer MEDICARE, OTHER, SELFPAY ==
[2024-03-11 15:32] LABS: PT 36.5 Sec (11.4-14.6)
== END ==
LOC: REG 12:55
PROVIDERS: ATTENDING PHYSICIAN Internal Medicine Cardiovascular Disease; FAMILY PHYSICIAN Nurse Practitioner Adult Health
DX: Z95.2 Presence of prosthetic heart valve (principal); Z79.01 Long term (current) use of anticoagulants
CPT/HCPCS: 36415; 85610

== ENCOUNTER → 2024-03-15 07:18 | Outpatient (REF) | payer MEDICARE, OTHER, SELFPAY ==
[2024-03-15 08:15] LABS: % Basophils 0.7 % (0-2); % Eosinophils 1.5 % (0-6); % Immature Granulocytes 1.2 % (0-0.5); % Lymphocytes 20.3 % (20.5-51.1); % Monocytes 6.1 % (1.7-9.3); % Neutrophils 70.2 % (42.2-75.2); Absolute Basophils 0.1 10^3/uL (0-0.2); Absolute Eosinophils 0.1 10^3/uL (0-0.7); Absolute Immature Granulocytes 0.1 10^3/uL (0-0.05); Absolute Lymphocytes 1.4 10^3/uL (1.2-3.4); Absolute Monocytes 0.4 10^3/uL (0.1-0.6); Absolute Neutrophils 4.7 10^3/uL (1.4-6.5); Hematocrit 44.2 % (37.0-47.0); Mean Corp Hgb Conc. 33.9 g/dL (33.0-37.0); Mean Corpuscular Hgb 33.3 pg (27.0-31.0); Mean Corpuscular Volume 98.2 fL (81.0-99.0); Mean Platelet Volume 9.3 fL (7.4-10.4); Nucleated Red Blood Cells % 0 %; Platelet Count 216 10^3/uL (130-400); Red Cell Dist. Width 12.6 % (11.5-14.5); White Blood Cell Count 6.8 10^3/uL (4.8-10.8)
[2024-03-15 08:48] LABS: Glycohemoglobin (HgbA1c) 6.3 % (4.0-5.6)
[2024-03-15 09:13] LABS: TSH Reflex To Free T4 1.95 uIU/ml (0.47-4.68)
[2024-03-15 09:24] LABS: ALT (SGPT) 39 U/L (0-35); AST (SGOT) 34 U/L (14-36); Alkaline Phosphatase 113 U/L (38-126); Blood Urea Nitrogen 17 mg/dl (7-17); Carbon Dioxide 24 mmol/L (22-30); Chloride 105 mmol/L (98-107); Glucose 154 mg/dl (70-99); HDL Cholesterol 34 mg/dl; LDL Cholesterol, Calculated 86 mg/dl; Potassium 4.5 mmol/L (3.5-5.1); Sodium 140 mmol/L (135-145); Total Bilirubin 0.5 mg/dl (0.2-1.3); Total Cholesterol 182 mg/dl (50-199); Total Protein 6.5 g/dl (6.3-8.2); Triglyceride 310 mg/dl (10-149); Very Low Density Lipoprotein 62 mg/dl (0-30); eGFR > 60.00
== END ==
LOC: REG 07:18
PROVIDERS: ATTENDING PHYSICIAN Nurse Practitioner Adult Health
DX: I10 Essential (primary) hypertension (principal); Z95.2 Presence of prosthetic heart valve; Z79.01 Long term (current) use of anticoagulants; R79.89 Other specified abnormal findings of blood chemistry; Z00.00 Encounter for general adult medical examination without abnormal findings; R73.03 Prediabetes
CPT/HCPCS: 36415; 80053; 80061; 83036; 84443; 85025

== ENCOUNTER → 2024-04-01 15:37 | Outpatient (REF) | payer MEDICARE, OTHER, SELFPAY ==
[2024-04-01 16:50] LABS: INR 2.46; PT 26.5 Sec (11.4-14.6)
== END ==
LOC: REG 15:37
PROVIDERS: ATTENDING PHYSICIAN Internal Medicine Cardiovascular Disease; FAMILY PHYSICIAN Nurse Practitioner Adult Health
DX: Z95.2 Presence of prosthetic heart valve (principal); Z79.01 Long term (current) use of anticoagulants
CPT/HCPCS: 36415; 85610

== ENCOUNTER → 2024-05-12 11:51 | Outpatient (REF) | payer MEDICARE, OTHER, SELFPAY ==
[2024-05-12 13:09] LABS: INR 2.91; PT 30.4 Sec (11.4-14.6)
== END ==
LOC: REG 11:51
PROVIDERS: ATTENDING PHYSICIAN Internal Medicine Cardiovascular Disease; FAMILY PHYSICIAN Nurse Practitioner Adult Health
DX: Z95.2 Presence of prosthetic heart valve (principal); Z79.01 Long term (current) use of anticoagulants
CPT/HCPCS: 36415; 85610

== ENCOUNTER → 2024-06-04 09:23 | Outpatient (REF) | payer MEDICARE, OTHER, SELFPAY ==
[2024-06-04 09:59] LABS: INR 2.95; PT 31.1 Sec (11.4-14.6)
== END ==
LOC: CLAB 09:23
PROVIDERS: ATTENDING PHYSICIAN Internal Medicine Cardiovascular Disease
DX: Z95.2 Presence of prosthetic heart valve (principal); Z79.01 Long term (current) use of anticoagulants
CPT/HCPCS: 36415; 85610

== ENCOUNTER → 2024-07-10 11:18 | Outpatient (REF) | payer MEDICARE, OTHER, SELFPAY ==
[2024-07-10 14:04] LABS: INR 3.07
== END ==
LOC: REG 11:18
PROVIDERS: ATTENDING PHYSICIAN Internal Medicine Cardiovascular Disease; FAMILY PHYSICIAN Internal Medicine
DX: Z95.2 Presence of prosthetic heart valve (principal); Z79.01 Long term (current) use of anticoagulants
CPT/HCPCS: 36415; 85610

== ENCOUNTER → 2024-08-06 15:15 | Outpatient (REF) | payer MEDICARE, OTHER, SELFPAY ==
[2024-08-06 15:56] LABS: INR 3.65; PT 36.5 Sec (11.4-14.6)
== END ==
LOC: REG 15:15
PROVIDERS: ATTENDING PHYSICIAN Internal Medicine Cardiovascular Disease
DX: Z95.3 Presence of xenogenic heart valve (principal); Z79.01 Long term (current) use of anticoagulants
CPT/HCPCS: 36415; 85610

== ENCOUNTER → 2024-08-18 11:42 | Outpatient (REF) | payer MEDICARE, OTHER, SELFPAY ==
[2024-08-18 12:27] LABS: INR 4.16; PT 39.8 Sec (11.4-14.6)
[2024-08-18 13:03] LABS: Microalbumin, Random Urine 1.5 mg/dl (0.6-1.7)
[2024-08-18 13:47] LABS: Glycohemoglobin (HgbA1c) 6.5 % (4.0-5.6)
== END ==
LOC: REG 11:42
PROVIDERS: ATTENDING PHYSICIAN Nurse Practitioner Adult Health
DX: I10 Essential (primary) hypertension (principal); E11.9 Type 2 diabetes mellitus without complications; E78.2 Mixed hyperlipidemia; Z95.2 Presence of prosthetic heart valve; Z79.01 Long term (current) use of anticoagulants
CPT/HCPCS: 36415; 82043; 83036; 85610

== ENCOUNTER → 2024-08-22 19:18 | Outpatient (REF) | payer MEDICARE, OTHER, SELFPAY | LOC: MRI 3T 19:18 | PROVIDERS: ATTENDING PHYSICIAN Physician Assistant; FAMILY PHYSICIAN Nurse Practitioner Adult Health | DX: M54.16 Radiculopathy, lumbar region (principal) | CPT/HCPCS: 72148 ==

== ENCOUNTER → 2024-09-01 10:32 | Outpatient (REF) | payer MEDICARE, OTHER, SELFPAY ==
[2024-09-01 11:47] LABS: INR 3.59; PT 35.6 Sec (11.4-14.6)
== END ==
LOC: REG 10:32
PROVIDERS: ATTENDING PHYSICIAN Internal Medicine Cardiovascular Disease; FAMILY PHYSICIAN Nurse Practitioner Adult Health
DX: Z95.2 Presence of prosthetic heart valve (principal); Z79.01 Long term (current) use of anticoagulants
CPT/HCPCS: 36415; 85610

== ENCOUNTER → 2024-09-15 06:33 | Outpatient (REF) | payer MEDICARE, OTHER, SELFPAY ==
[2024-09-15 07:39] LABS: INR 2.85; PT 29.8 Sec (11.4-14.6)
[2024-09-15 08:04] LABS: ALT (SGPT) 47 U/L (0-35); AST (SGOT) 33 U/L (14-36); Albumin 4.5 g/dl (3.5-5.0); Alkaline Phosphatase 121 U/L (38-126); Blood Urea Nitrogen 11 mg/dl (7-17); Calcium 9.8 mg/dl (8.4-10.2); Carbon Dioxide 29 mmol/L (22-30); Chloride 102 mmol/L (98-107); Glucose 163 mg/dl (70-99); HDL Cholesterol 36 mg/dl; LDL Cholesterol, Calculated 102 mg/dl; Sodium 140 mmol/L (135-145); Total Bilirubin 0.7 mg/dl (0.2-1.3); Total Cholesterol 187 mg/dl (50-199); Total Protein 6.9 g/dl (6.3-8.2); Triglyceride 246 mg/dl (10-149); Very Low Density Lipoprotein 49 mg/dl (0-30); eGFR > 60.00
[2024-09-15 08:36] LABS: Glycohemoglobin (HgbA1c) 6.5 % (4.0-5.6)
[2024-09-15 08:40] LABS: Microalbumin, Random Urine 0.8 mg/dl (0.6-1.7); Microalbumin/creatinine Ratio 6.4 mg/g
== END ==
LOC: REG 06:33
PROVIDERS: ATTENDING PHYSICIAN Internal Medicine Cardiovascular Disease; FAMILY PHYSICIAN Nurse Practitioner Adult Health
DX: Z95.2 Presence of prosthetic heart valve (principal); Z79.01 Long term (current) use of anticoagulants; I10 Essential (primary) hypertension; E11.9 Type 2 diabetes mellitus without complications; E78.2 Mixed hyperlipidemia
CPT/HCPCS: 36415; 80053; 80061; 82043; 82570; 83036; 85610

== ENCOUNTER → 2024-10-13 11:52 | Outpatient (REF) | payer MEDICARE, OTHER, SELFPAY ==
[2024-10-13 12:51] LABS: INR 2.54; PT 27.3 Sec (11.4-14.6)
== END ==
LOC: REG 11:52
PROVIDERS: ATTENDING PHYSICIAN Internal Medicine Cardiovascular Disease
DX: Z95.2 Presence of prosthetic heart valve (principal); Z79.01 Long term (current) use of anticoagulants
CPT/HCPCS: 36415; 85610

== ENCOUNTER → 2024-10-24 10:48 | Outpatient (REF) | payer MEDICARE, OTHER, SELFPAY | LOC: WDC 10:48 | PROVIDERS: ATTENDING PHYSICIAN Nurse Practitioner Adult Health | DX: R92.8 Other abnormal and inconclusive findings on diagnostic imaging of breast (principal) | CPT/HCPCS: 76642 ==

== ENCOUNTER → 2024-11-10 10:29 | Outpatient (REF) | payer MEDICARE, OTHER, SELFPAY ==
[2024-11-10 11:32] LABS: INR 2.91; PT 30.3 Sec (11.4-14.6)
== END ==
LOC: REG 10:29
PROVIDERS: ATTENDING PHYSICIAN Internal Medicine Cardiovascular Disease; FAMILY PHYSICIAN Nurse Practitioner Adult Health
DX: Z95.2 Presence of prosthetic heart valve (principal); Z79.01 Long term (current) use of anticoagulants
CPT/HCPCS: 36415; 85610

== ENCOUNTER → 2024-12-10 09:39 | Outpatient (REF) | payer MEDICARE, OTHER, SELFPAY ==
[2024-12-10 12:29] LABS: ALT (SGPT) 49 U/L (0-35); AST (SGOT) 36 U/L (14-36); Glucose 148 mg/dl (70-99); HDL Cholesterol 30 mg/dl; LDL Cholesterol, Calculated 95 mg/dl; Total Cholesterol 172 mg/dl (50-199); Triglyceride 235 mg/dl (10-149); Very Low Density Lipoprotein 47 mg/dl (0-30)
[2024-12-10 12:47] LABS: Glycohemoglobin (HgbA1c) 6.7 % (4.0-5.6)
[2024-12-10 14:45] LABS: INR 2.66; PT 28.8 Sec (11.4-14.6)
== END ==
LOC: CLAB 09:39
PROVIDERS: ATTENDING PHYSICIAN Internal Medicine Cardiovascular Disease
DX: Z95.2 Presence of prosthetic heart valve (principal); Z79.01 Long term (current) use of anticoagulants; E78.5 Hyperlipidemia, unspecified; E11.8 Type 2 diabetes mellitus with unspecified complications
CPT/HCPCS: 36415; 80061; 82947; 83036; 84450; 84460; 85610

== ENCOUNTER → 2024-12-17 06:44 | Outpatient (REF) | payer MEDICARE, OTHER, SELFPAY ==
[2024-12-17 08:17] LABS: % Basophils 0.7 % (0-2); % Eosinophils 1.5 % (0-6); % Immature Granulocytes 0.4 % (0-0.5); % Neutrophils 67.4 % (42.2-75.2); Absolute Basophils 0.1 10^3/uL (0-0.2); Absolute Eosinophils 0.1 10^3/uL (0-0.7); Absolute Lymphocytes 1.7 10^3/uL (1.2-3.4); Absolute Monocytes 0.4 10^3/uL (0.1-0.6); Absolute Neutrophils 4.8 10^3/uL (1.4-6.5); Hematocrit 45.1 % (37.0-47.0); Mean Corp Hgb Conc. 33.3 g/dL (33.0-37.0); Mean Corpuscular Hgb 32.2 pg (27.0-31.0); Mean Corpuscular Volume 96.8 fL (81.0-99.0); Nucleated Red Blood Cells % 0 %; Platelet Count 224 10^3/uL (130-400); Red Blood Cell Count 4.66 10^6/uL (4.20-5.40); Red Cell Dist. Width 12.5 % (11.5-14.5); White Blood Cell Count 7.1 10^3/uL (4.8-10.8)
[2024-12-17 08:20] LABS: Urine Albumin Negative (Neg - Trace); Urine Bilirubin Negative (Negative); Urine Character Clear (Clear); Urine Color Yellow; Urine Glucose Negative (Negative); Urine Ketone Negative (Negative); Urine Leukocyte Negative (Negative); Urine Nitrite Negative (Negative); Urine Occult Blood 2+ (Negative); Urine Specific Gravity 1.015 (<1.030); Urine Urobilinogen Negative (Neg - 1+)
[2024-12-17 08:27] LABS: Urine Bacteria Moderate (Negative); Urine Squamous Cell >30 /LPF (Few)
[2024-12-17 08:28] LABS: Urine Red Blood Cell 0-2 /HPF (0-2); Urine White Cell 0-2 /HPF (0-5)
[2024-12-17 08:52] LABS: Erythrocyte Sed Rate 2 mm/hour (0-20)
[2024-12-17 08:55] LABS: ALT (SGPT) 59 U/L (0-35); AST (SGOT) 37 U/L (14-36); Albumin 4.3 g/dl (3.5-5.0); Alkaline Phosphatase 100 U/L (38-126); Blood Urea Nitrogen 12 mg/dl (7-17); Calcium 9.7 mg/dl (8.4-10.2); Carbon Dioxide 29 mmol/L (22-30); Chloride 108 mmol/L (98-107); Glucose 127 mg/dl (70-99); Potassium 4.5 mmol/L (3.5-5.1); Sodium 142 mmol/L (135-145); Total Bilirubin 0.5 mg/dl (0.2-1.3); Total Protein 6.7 g/dl (6.3-8.2); eGFR > 60.00
[2024-12-17 10:14] LABS: Vitamin D, 25-OH*** 36.4 ng/mL (30-80)
[2024-12-17 10:27] LABS: TSH 0.41 uIU/ml (0.47-4.68)
[2024-12-17 11:03] LABS: Folate 17.2 ng/ml (2.76-20); Vitamin B12 581 pg/ml (239-931)
== END ==
LOC: REG 06:44
PROVIDERS: ATTENDING PHYSICIAN Psychiatry & Neurology Psychiatry; FAMILY PHYSICIAN Nurse Practitioner Adult Health
DX: F32.2 Major depressive disorder, single episode, severe without psychotic features (principal); F41.1 Generalized anxiety disorder; F51.01 Primary insomnia; E55.9 Vitamin D deficiency, unspecified; D51.9 Vitamin B12 deficiency anemia, unspecified; E53.8 Deficiency of other specified B group vitamins; Z79.899 Other long term (current) drug therapy
CPT/HCPCS: 36415; 80053; 81003; 81015; 82306; 82607; 82746; 84443; 85025; 85652; 87086

== ENCOUNTER → 2024-12-19 11:06 | Outpatient (REF) | payer MEDICARE, OTHER, SELFPAY ==
[2024-12-19 14:47] LABS: Free T3 3.61 pg/ml (2.77-5.27); Free T4 1.02 ng/dl (0.78-2.19); Total Thyroxine 9.18 ug/dl (5.5-11.0)
[2024-12-19 15:00] LABS: TSH 1.97 uIU/ml (0.47-4.68)
[2024-12-20 21:38] LABS: Thyroglobulin Antibodies <1.5 IU/mL (0.0-4.0); Thyroid Peroxidase Ab (TPO) <0.3 IU/mL (0.0-9.0)
[2024-12-21 05:20] LABS: Total T3 (Sendout) 131 ng/dL (80-200)
== END ==
LOC: REG 11:06
PROVIDERS: ATTENDING PHYSICIAN Nurse Practitioner Adult Health
DX: R53.83 Other fatigue (principal); R20.2 Paresthesia of skin; L65.9 Nonscarring hair loss, unspecified; R79.89 Other specified abnormal findings of blood chemistry
CPT/HCPCS: 36415; 84436; 84439; 84443; 84480; 84481; 86038; 86140; 86376; 86800

== ENCOUNTER → 2025-01-13 12:42 | Outpatient (REF) | payer MEDICARE, OTHER, SELFPAY ==
[2025-01-13 13:22] LABS: INR 2.60; PT 27.8 Sec (11.4-14.6)
== END ==
LOC: REG 12:42
PROVIDERS: ATTENDING PHYSICIAN Internal Medicine Cardiovascular Disease; FAMILY PHYSICIAN Nurse Practitioner Adult Health
DX: Z95.2 Presence of prosthetic heart valve (principal); Z79.01 Long term (current) use of anticoagulants
CPT/HCPCS: 36415; 85610

== ENCOUNTER → 2025-02-14 07:28 | Outpatient (REF) | payer MEDICARE, OTHER, SELFPAY ==
[2025-02-14 08:06] LABS: INR 1.14; PT 15.0 Sec (11.4-14.6)
== END ==
LOC: REG 07:28
PROVIDERS: ATTENDING PHYSICIAN Internal Medicine Cardiovascular Disease
DX: Z79.01 Long term (current) use of anticoagulants (principal)
CPT/HCPCS: 36415; 85610

== ENCOUNTER 2025-02-17 06:15 | Day surgery (SDC) | payer MEDICARE, OTHER, SELFPAY ==
[2025-02-17 07:32] LABS: Glucose - Point of Care 142 mg/dl (70-99)
== END 2025-02-17 08:30 | disposition home or self-care (01) ==
LOC: GI 06:15
PROVIDERS: ATTENDING PHYSICIAN Specialist; FAMILY PHYSICIAN Nurse Practitioner Adult Health
DX: Z12.11 Encounter for screening for malignant neoplasm of colon (principal); D12.3 Benign neoplasm of transverse colon; D12.2 Benign neoplasm of ascending colon; K63.5 Polyp of colon; Z86.0101 Personal history of adenomatous and serrated colon polyps
CPT/HCPCS: 45385; 82962; 88305

== ENCOUNTER → 2025-02-19 11:28 | Outpatient (REF) | payer MEDICARE, OTHER, SELFPAY ==
[2025-02-19 12:54] LABS: INR 1.50; PT 18.6 Sec (11.4-14.6)
== END ==
LOC: REG 11:28
PROVIDERS: ATTENDING PHYSICIAN Internal Medicine Cardiovascular Disease; FAMILY PHYSICIAN Nurse Practitioner Adult Health
DX: Z79.01 Long term (current) use of anticoagulants (principal)
CPT/HCPCS: 36415; 85610

== ENCOUNTER → 2025-02-24 09:54 | Outpatient (REF) | payer MEDICARE, OTHER, SELFPAY ==
[2025-02-24 10:30] LABS: INR 1.98; PT 22.6 Sec (11.4-14.6)
== END ==
LOC: REG 09:54
PROVIDERS: ATTENDING PHYSICIAN Internal Medicine Cardiovascular Disease; FAMILY PHYSICIAN Nurse Practitioner Adult Health
DX: Z95.2 Presence of prosthetic heart valve (principal); Z79.01 Long term (current) use of anticoagulants
CPT/HCPCS: 36415; 85610

== ENCOUNTER → 2025-02-26 14:54 | Outpatient (REF) | payer MEDICARE, OTHER, SELFPAY ==
[2025-02-26 15:21] LABS: INR 2.30; PT 25.8 Sec (11.4-14.6)
== END ==
LOC: REG 14:54
PROVIDERS: ATTENDING PHYSICIAN Internal Medicine Cardiovascular Disease; FAMILY PHYSICIAN Nurse Practitioner Adult Health
DX: Z95.2 Presence of prosthetic heart valve (principal); Z79.01 Long term (current) use of anticoagulants
CPT/HCPCS: 36415; 85610

== ENCOUNTER → 2025-03-02 13:43 | Outpatient (REF) | payer MEDICARE, OTHER, SELFPAY ==
[2025-03-02 14:22] LABS: INR 3.11; PT 31.9 Sec (11.4-14.6)
== END ==
LOC: REG 13:43
PROVIDERS: ATTENDING PHYSICIAN Internal Medicine Cardiovascular Disease; FAMILY PHYSICIAN Nurse Practitioner Adult Health
DX: Z95.2 Presence of prosthetic heart valve (principal); Z79.01 Long term (current) use of anticoagulants
CPT/HCPCS: 36415; 85610

== ENCOUNTER → 2025-03-17 15:34 | Outpatient (REF) | payer MEDICARE, OTHER, SELFPAY ==
[2025-03-17 16:22] LABS: INR 3.32; PT 33.5 Sec (11.4-14.6)
== END ==
LOC: REG 15:34
PROVIDERS: ATTENDING PHYSICIAN Internal Medicine Cardiovascular Disease; FAMILY PHYSICIAN Nurse Practitioner Adult Health
DX: Z95.2 Presence of prosthetic heart valve (principal); Z79.01 Long term (current) use of anticoagulants
CPT/HCPCS: 36415; 85610

== ENCOUNTER → 2025-04-22 12:43 | Outpatient (REF) | payer MEDICARE, OTHER, SELFPAY ==
[2025-04-22 13:16] LABS: INR 2.20; PT 24.9 Sec (11.4-14.6)
== END ==
LOC: REG 12:43
PROVIDERS: ATTENDING PHYSICIAN Internal Medicine Cardiovascular Disease; FAMILY PHYSICIAN Nurse Practitioner Adult Health
DX: Z95.2 Presence of prosthetic heart valve (principal); Z79.01 Long term (current) use of anticoagulants
CPT/HCPCS: 36415; 85610

== ENCOUNTER → 2025-04-30 10:34 | Outpatient (REF) | payer MEDICARE, OTHER, SELFPAY ==
[2025-04-30 11:24] LABS: INR 3.94; PT 38.2 Sec (11.4-14.6)
== END ==
LOC: REG 10:34
PROVIDERS: ATTENDING PHYSICIAN Internal Medicine Cardiovascular Disease
DX: Z95.2 Presence of prosthetic heart valve (principal); Z79.01 Long term (current) use of anticoagulants
CPT/HCPCS: 36415; 85610

== ENCOUNTER → 2025-05-01 14:40 | Outpatient (REF) | payer MEDICARE, OTHER, SELFPAY | LOC: MRI 14:40 | PROVIDERS: ATTENDING PHYSICIAN Specialist; FAMILY PHYSICIAN Nurse Practitioner Adult Health | DX: K76.0 Fatty (change of) liver, not elsewhere classified (principal) | CPT/HCPCS: 74181 ==

== ENCOUNTER → 2025-05-13 12:34 | Outpatient (REF) | payer MEDICARE, OTHER, SELFPAY ==
[2025-05-13 13:55] LABS: INR 3.80; PT 37.7 Sec (11.4-14.6)
== END ==
LOC: REG 12:34
PROVIDERS: ATTENDING PHYSICIAN Internal Medicine Cardiovascular Disease; FAMILY PHYSICIAN Nurse Practitioner Adult Health
DX: Z95.2 Presence of prosthetic heart valve (principal); Z79.01 Long term (current) use of anticoagulants
CPT/HCPCS: 36415; 85610

== ENCOUNTER 2025-05-17 21:48 | Emergency (ER) | payer MEDICARE, OTHER, SELFPAY ==
[2025-05-17 21:49] VITALS: BP 150/69
[2025-05-17 22:15] LABS: Hematocrit 43.2 % (37.0-47.0); Hemoglobin 14.0 g/dL (12.0-16.0); Mean Corp Hgb Conc. 32.4 g/dL (33.0-37.0); Mean Corpuscular Volume 99.5 fL (81.0-99.0); Nucleated Red Blood Cells % 0 %; Platelet Count 212 10^3/uL (130-400); Red Cell Dist. Width 13.3 % (11.5-14.5)
[2025-05-17 22:27] LABS: ALT (SGPT) 29 U/L (0-35); AST (SGOT) 27 U/L (14-36); Albumin 3.9 g/dl (3.5-5.0); Alkaline Phosphatase 105 U/L (38-126); Blood Urea Nitrogen 19 mg/dl (7-17); Calcium 9.7 mg/dl (8.4-10.2); Carbon Dioxide 31 mmol/L (22-30); Chloride 104 mmol/L (98-107); Glucose 147 mg/dl (70-99); Potassium 4.3 mmol/L (3.5-5.1); Sodium 139 mmol/L (135-145); Total Protein 6.4 g/dl (6.3-8.2); eGFR 55.42
[2025-05-17 22:35] LABS: COVID-19 Antigen Negative (Negative)
[2025-05-17 22:38] LABS: Troponin I < 0.012 ng/ml
[2025-05-17 22:41] VITALS: BP 98/53
[2025-05-17 23:00] VITALS: BP 102/63
--- NOTE | 2025-05-17 23:32 | ED.GENMED ---
History of Present Illness
<Bob Hennessy MD, Resident - Last Filed: 05/18/25 04:10>
General
Chief Complaint: Breathing Problem
Source: patient and significant other
Time Seen by Provider: 05/17/25 23:03
History of Present Illness
History of Present Illness:
Patient is a 64-year-old female with PMH of aortic stenosis s/p mechanical valve placement on warfarin, HTN, HLD, anxiety/depression, and hepatic steatosis who presents to the [facility] with 3 days of progressive cough productive of clear
sputum, shortness of breath, muscle aches, and fatigue. No chest pain, rhinorrhea, congestion, wheezing, hemoptysis, or N/V/D. No recent sick contacts. Increased urinary urgency and frequency over the last few days, though patient believes this
is due to the tea she has been drinking. Patient has tried acetaminophen, Mucinex, and Vicks vapor rub, but these have provided minimal relief. Patient has been eating and drinking normally. No prior hospitalizations for respiratory problems.
Patient has 40+ year history of smoking half a pack per day. No oxygen at home. Patient dropped a box on her left calf 4 days ago, which caused a bruise that has some tenderness and mild pain with ambulation.
Past History
<Bob Hennessy MD, Resident - Last Filed: 05/18/25 04:10>
Past History
ED Past Medical History: HTN, Valvular disease (), Psychiatric (Anxiety, depression), Other (Hypertension, colon polyps, uterine fibroid) and Other (Vertigo)
ED Past Surgical History: Cardiac (AVR), and Gynecological (Endometrial ablation 2002)
Social History
Tobacco: Smoker (40+ years half pack per day)
Alcohol: None
Drug: None
Personal:
Living: with family
Employment: Employed (RN)
Family History
Family History: Other (nc)
Review of Systems
<Bob Hennessy MD, Resident - Last Filed: 05/18/25 04:10>
Review of Systems
Constitutional: Reports fatigue; Denies fever or chills
EENT: Reports other (Denies congestion); Denies runny nose
Respiratory: Reports cough and trouble breathing; Denies hemoptysis
Cardiac: Denies chest pain, palpitations or syncope
ABD/GI: Denies nausea, vomiting or diarrhea
: Reports frequency and urgency; Denies dysuria
Musculoskeletal: Reports muscle pain
Neurological: Denies dizzy
Hematologic/Lymphatic: Reports bruising
Phy Exam
<Bob Hennessy MD, Resident - Last Filed: 05/18/25 04:10>
Physical Exam
Physical Exam:
General: Tired appearing. NAD. Conversant.
Pulm: Mild wheezing diffusely. No crackles. No cyanosis.
CV: RRR. Audible mechanical valve. Pulses 2+ all extremities.
MSK: Bruising, TTP on left calf. No warmth or swelling.
Neuro: A&O x 3. NAD. CN II through XII gross intact.
Scores
<Bob Hennessy MD, Resident - Last Filed: 05/18/25 04:10>
Heart Failure Risk
HF Risk Score: 0
Admission Status: LOW RISK 2.8% Consider discharge to home with f/u visit to PCP/Director Physical Therapy
<Raquel Carlos, DO - Last Filed: 05/18/25 02:35>
Heart Failure Risk
Heart Failure Risk Score: Yes
History of Stroke or TIA: No
History of intubation for respiratory distress: No
Heart rate on ED arrival >/= 110: No
SaO2 <90% on arrival on room air: No
HR >/=110 during 3min walk test (or too ill to perform test): No
ECG has acute ischemic changes: No
Urea >/=12mmol/L (BUN 33.6mg/dL): No
Serum CO2>/=35mmol/L: No
Troponin I or T elevated to [place] Level (0.4mg/dL): No
NT-proBNP >/=5,000ng/L (5,000pg/ml): No
HF Risk Score: 0
Admission Status: LOW RISK 2.8% Consider discharge to home with f/u visit to PCP/Director Physical Therapy
Course
<Bob Hennessy MD, Resident - Last Filed: 05/18/25 04:10>
Orders/Labs/Results
Orders:
Orders
05/17/25 21:53
Electrocardiogram (*1) Urgent
Reason for Study: Shortness of Breath
EKG- Treatment ONCE
05/17/25 22:03
COVID-19 Antigen Urgent
Source: Nasal Swab
Complete Blood Count/With Diff Urgent
Comprehensive Metabolic Panel Urgent
NT-proBNP Urgent
Comment: ADD ON
Troponin I Urgent
Influenza A+B Rapid Molecular Urgent
MADIE Source: Nasal Swab
Specimen Description:
05/18/25 00:26
Add On- LAB Urgent
Tests Added?: BNP
05/18/25 00:27
CR Chest - 2 Views Urgent
Comment:
Reason For Exam: cough, SOB x 4 days
US Periph Venous LOWER Ext LT Urgent
Comment:
Reason For Exam: calf pain, swelling, bruising
05/18/25 00:35
Prothrombin Time Urgent
Urinalysis Reflex To Culture Urgent
Date Specimen was Collected: 05/18/25
Time Specimen was Collected: 00:30
Urine Microscopic Reflex Cult Urgent
Urine Culture Urgent
MADIE Source: U
Specimen Description:
Date Specimen was Collected: 05/18/25
Time Specimen was Collected: 00:30
05/18/25 00:37
Ipratropium/Albuterol Sulfate [Duoneb] 3 ml INH R NOW STA
05/18/25 00:38
Ipratropium/Albuterol Sulfate [Duoneb] 3 ml .ROUTE .STK-MED ONE
05/18/25 01:57
Dexamethasone Sod Phosphate [Decadron] 10 mg IV NOW STA
05/18/25 02:01
3 Minute Walk Test [3 Minute Walk Test- Treatment] ONCE
05/18/25 02:02
Doxycycline [Vibramycin] 100 mg PO NOW STA
Abnormal Lab Results
05/17/25 05/18/25
22:03 00:35
MCV 99.5 H fL
(81.0-99.0)
MCH 32.3 H pg
(27.0-31.0)
MCHC 32.4 L g/dL
(33.0-37.0)
Abs Immat Gran (auto) 0.1 H 10^3/uL
(0-0.05)
Absolute Neuts (auto) 6.8 H 10^3/uL
(1.4-6.5)
Absolute Monos (auto) 0.8 H 10^3/uL
(0.1-0.6)
Immature Gran % 0.8 H %
(0-0.5)
PT 19.6 H Sec
(11.4-14.6)
Carbon Dioxide 31 H mmol/L
(22-30)
BUN 19 H mg/dl
(7-17)
Creatinine 1.1 H mg/dL
(0.6-1.0)
Glucose 147 H mg/dl
(70-99)
Leukocyte Esterase Rfl 1+ A
(Negative)
Urine Bacteria (Reflex) Few A
(Negative)
Urine Albumin (Reflex) 2+ A
(Neg - Trace)
05/17/25 22:03
05/17/25 22:03
Vital Signs
Initial and Last Documented VS:
Initial Vital Signs
Temp Pulse Resp BP Pulse Ox
97.9 F 89 19 150/69 95
05/17/25 21:49 05/17/25 21:49 05/17/25 21:49 05/17/25 21:49 05/17/25 21:49
Last Documented Vital Signs
Temp Pulse Resp BP Pulse Ox
97.9 F 79 18 140/70 91
05/17/25 21:49 05/18/25 02:19 05/18/25 01:45 05/18/25 01:13 05/18/25 02:19
<Raquel Carlos, DO - Last Filed: 05/18/25 02:35>
Orders/Labs/Results
Orders:
Orders
05/17/25 21:53
Electrocardiogram (*1) Urgent
Reason for Study: Shortness of Breath
EKG- Treatment ONCE
05/17/25 22:03
COVID-19 Antigen Urgent
Source: Nasal Swab
Complete Blood Count/With Diff Urgent
Comprehensive Metabolic Panel Urgent
NT-proBNP Urgent
Comment: ADD ON
Troponin I Urgent
Influenza A+B Rapid Molecular Urgent
MADIE Source: Nasal Swab
Specimen Description:
05/18/25 00:26
Add On- LAB Urgent
Tests Added?: BNP
05/18/25 00:27
CR Chest - 2 Views Urgent
Comment:
Reason For Exam: cough, SOB x 4 days
US Periph Venous LOWER Ext LT Urgent
Comment:
Reason For Exam: calf pain, swelling, bruising
05/18/25 00:35
Prothrombin Time Urgent
Urinalysis Reflex To Culture Urgent
Date Specimen was Collected: 05/18/25
Time Specimen was Collected: 00:30
Urine Microscopic Reflex Cult Urgent
Urine Culture Urgent
MADIE Source: U
Specimen Description:
Date Specimen was Collected: 05/18/25
Time Specimen was Collected: 00:30
05/18/25 00:37
Ipratropium/Albuterol Sulfate [Duoneb] 3 ml INH R NOW STA
05/18/25 00:38
Ipratropium/Albuterol Sulfate [Duoneb] 3 ml .ROUTE .STK-MED ONE
05/18/25 01:57
Dexamethasone Sod Phosphate [Decadron] 10 mg IV NOW STA
05/18/25 02:01
3 Minute Walk Test [3 Minute Walk Test- Treatment] ONCE
05/18/25 02:02
Doxycycline [Vibramycin] 100 mg PO NOW STA
Abnormal Lab Results
05/17/25 05/18/25
22:03 00:35
MCV 99.5 H fL
(81.0-99.0)
MCH 32.3 H pg
(27.0-31.0)
MCHC 32.4 L g/dL
(33.0-37.0)
Abs Immat Gran (auto) 0.1 H 10^3/uL
(0-0.05)
Absolute Neuts (auto) 6.8 H 10^3/uL
(1.4-6.5)
Absolute Monos (auto) 0.8 H 10^3/uL
(0.1-0.6)
Immature Gran % 0.8 H %
(0-0.5)
PT 19.6 H Sec
(11.4-14.6)
Carbon Dioxide 31 H mmol/L
(22-30)
BUN 19 H mg/dl
(7-17)
Creatinine 1.1 H mg/dL
(0.6-1.0)
Glucose 147 H mg/dl
(70-99)
Leukocyte Esterase Rfl 1+ A
(Negative)
Urine Bacteria (Reflex) Few A
(Negative)
Urine Albumin (Reflex) 2+ A
(Neg - Trace)
05/17/25 22:03
05/17/25 22:03
Vital Signs
Initial and Last Documented VS:
Initial Vital Signs
Temp Pulse Resp BP Pulse Ox
97.9 F 89 19 150/69 95
05/17/25 21:49 05/17/25 21:49 05/17/25 21:49 05/17/25 21:49 05/17/25 21:49
Last Documented Vital Signs
Temp Pulse Resp BP Pulse Ox
97.9 F 79 18 140/70 91
05/17/25 21:49 05/18/25 02:19 05/18/25 01:45 05/18/25 01:13 05/18/25 02:19
<Bob Hennessy MD, Resident - Last Filed: 05/18/25 04:10>
MDM/Problems Addressed
Differential Diagnosis Includes:
Bronchitis
COPD exacerbation
Pneumonia
Pulmonary embolism
Heart failure
Pneumothorax
MDM/Problems Addressed:
Assessment: Patient is a 64-year-old female with PMH of aortic stenosis s/p mechanical valve on warfarin, HTN, and HLD who presents to the [facility] with 3 days of progressive cough productive of clear sputum, fatigue, muscle aches, and
shortness of breath. Patient has contusion on left calf after recently dropping a box on her leg 4 days ago. Patient's INR was recently supratherapeutic at 3.8 on 05/13. INR subtherapeutic at 1.64 today. Afebrile, nontachycardic, no leukocytosis.
Flu, COVID-negative. EKG unremarkable. proBNP 56.4. Creatinine mildly elevated to 1.1 above baseline of approximately 0.7. Physical exam shows mild wheezing diffusely and hacking cough with deep breathing. Suspect viral bronchitis and/or COPD
exacerbation. Workup ongoing.
Plan:
#Shortness of breath
EKG
Labs: CBC, CMP, troponin, flu, COVID, UA, pro-BNP, PT/INR
Imaging: CXR, LLE u/s
DuoNebs, Decadron, azithromycin
Ambulatory pulse ox
<Bob Hennessy MD, Resident - Last Filed: 05/18/25 04:10>
*Pulse Oximetry
SaO2: 95
Patient hypoxic: yes
*Critical Care Note
Total Time (30-74mins, 75-104mins- exclusive of procedures): Not Applicable
ED Attending Note
<Bob Hennessy MD, Resident - Last Filed: 05/18/25 04:10>
-
Portions of this chart may have been created with voice recognition software.� Occasional wrong word or��sound alike� substitutions may have occurred due to the inherent limitations of voice recognition software.
<Raquel Carlos DO - Last Filed: 05/18/25 02:35>
ED Attending Note
Patient seen and examined by attending physician: Yes
I performed the substantive portion of visit, reviewed & personally made and approve the management plan that is documented in note by myself or JAI.: Yes
ED Attending Note:
This is a 64-year-old woman who resides at home with her . She has a history of aortic stenosis, remote history of mechanical aortic valve. Chronically maintained on Coumadin. History of hypertension, hyperlipidemia. She is a smoker
approximately 1/2 pack/day. She reports no prior history of asthma nor COPD, no prior history of CHF.
She presents with several day history of cough, generalized fatigue, intermittent myalgias and shortness of breath. Cough has been hacking in nature, occasionally productive of clear phlegm. Cough is worse at nighttime, first thing in the morning
and worse with activity. She does note mild nasal congestion but no sore throat. No close contacts with similar symptoms. No recent travel. Although intermittent chills and aches she denies fever. She denies chest pain.
She was concerned tonight when shortness of breath seem to worsen and her pulse ox at home was 88.
1 week ago INR was slightly supratherapeutic at 3.8, Coumadin dose adjusted down. She was planned for repeat INR on Sunday, May 20. 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 Bruising and pain have been improving over the past 4 days. She denies lower extremity edema.
64-year-old woman appears her stated age, awake and alert, mild respiratory distress with mild tachypnea and frequent hacking cough is noted. She is afebrile. Pulse ox 93 to 95% on room air.
HEENT: Oral mucosa is moist. Mild pearly postnasal drip is noted. Nares have mildly boggy turbinates with scant clear rhinorrhea.
Neck supple, nontender, no adenopathy, no JVD.
Heart is regular rate and rhythm.
Lungs: Mild tachypnea. Markedly decreased breath sounds throughout with scant, scattered end expiratory wheezing.
Extremities: Left medial lower leg has a subacute moderately firm mildly tender ecchymotic contusion approximately 5 cm in length, 3 cm in width with dark purple ecchymosis extending distally to the proximal ankle. There is no peripheral edema. No
erythema nor palpable heat. Peripheral pulses are full and equal bilaterally.
Concern for acute bronchitis, COPD, CHF, pneumonia. PE/ACS are much less likely.
Labs thus far are unremarkable with normal white blood cell count, normal H&H.
Minimally elevated BUN and creatinine. I suspect an element of mild dehydration. Insensible losses related to cough, shortness of breath.
COVID and flu testing are negative.
EKG shows normal sinus rhythm, normal axis, no acute ST-T wave abnormalities. Unchanged from previous April 2023.
Will check INR, troponin, BNP.
Will check chest x-ray.
Left calf ecchymosis likely focal related to focal trauma but will check venous Doppler assess for potential underlying DVT.
Will give DuoNeb nebulizer
Patient feeling markedly improved after nebulizer treatment.
No further tachypnea and marked improvement in air movement with moderate increase in wheezing I suspect related to improvement in air movement.
Troponin is negative. BNP is normal.
INR subtherapeutic at 1.6. Left lower extremity DVT study is negative.
Pulse ox remains 95% on room air.
Chest x-ray shows mild hyperinflation. No evidence of infiltrate.
I suspect acute bronchitis with asthma versus COPD. Will give an IV dose of Decadron and plan for a short course of oral prednisone.
Due to smoking and concern for COPD, there is some concern for bacterial related bronchitis thus will initiate an antibiotic. Due to Coumadin will avoid Zithromax and will start a course of doxycycline.
Will also prescribe albuterol inhaler
Patient has been strongly encouraged to discontinue cigarettes. 3 minutes of smoking cessation counseling provided.
Will perform a walk test to assess for potential hypoxia with activity. If tolerating ambulation without hypoxia will plan for discharge to home with prompt follow-up with PCP this week for recheck.
Discharge Plan
Departure
Patient Disposition: Home (Routine Discharge)
Date of Disposition: 05/18/25
Time of Disposition: 02:29
Patient with high blood pressure during this ER visit?: No
Condition: Good
Discharge Problem:
Acute asthmatic bronchitis
Instructions: Asthma, Adult (DC), Acute Bronchitis, Adult (DC), Quitting smoking - ED (DC)
Prescriptions:
New
albuterol sulfate [Ventolin HFA] 90 mcg/actuation HFA aerosol inhaler
2 puff inhalation QID PRN (Reason: shortness of breath or wheezing) Qty: 8.5 0RF
doxycycline hyclate 100 mg capsule
100 mg PO BID Qty: 14 0RF
prednisone 10 mg Tablet
See Rx Instructions .ROUTE .COMPLEX Qty: 30 0RF
Rx Instructions:
Take By Mouth:
40 mg daily x3 days, 30 mg daily x3 days,
20 mg daily x3 days, 10 mg daily x3 days.
No Action
atorvastatin 10 MG tablet
10 mg PO DAILY
lisinopril 10 MG tablet
20 mg PO DAILY
escitalopram oxalate 20 MG tablet
20 mg PO DAILY
warfarin [Jantoven] 1 MG tablet
8.5 mg PO SUMOTUTHFRSA@1700
Theragen Tablet
1 tab PO DAILY
quetiapine [Seroquel] 100 mg Tablet
100 mg PO HS
trospium 20 mg Tablet
20 mg PO BIDPRN PRN (Reason: bladder spasms)
nebivolol [Bystolic] 20 mg Tablet
20 mg PO DAILY
cephalexin 500 mg capsule
500 mg PO Q6H Qty: 28 0RF
tamsulosin 0.4 mg capsule
0.4 mg PO DAILY Qty: 30 0RF
phenazopyridine 200 mg tablet
200 mg PO TID PRN (Reason: Pain) Qty: 12 0RF
Referrals:
UNKNOWN - PT NOT,INTERVIEWE [Unknown Provider]
Interventions
Interventions:
*Risk Screen - Suicide Last Done: 05/17/25 21:52
*General Assessment Last Done: 05/17/25 21:52
*Neglect/Abuse Screening Last Done: 05/17/25 21:52
*ED- Fall Risk Assessment Last Done: 05/18/25 02:42
*ED COVID-19 Vaccine History Last Done: 05/17/25 21:52
*ED Influenza Vaccine History Last Done: 05/17/25 21:52
*Nursing Disposition Last Done: 05/18/25 02:42
ED- Cardiac Assessment Last Done: 05/18/25 00:47
ED- Pulmonary Assessment Last Done: 05/18/25 00:47
Discharge Date and Time
Discharge Date/Time: 05/18/25 02:43
Print Language: CROATIAN
[2025-05-18] VITALS: BP 119/68
[2025-05-18 00:49] LABS: Urine Character Slightly Cloudy (Clear)
[2025-05-18 00:55] LABS: INR 1.64; PT 19.6 Sec (11.4-14.6)
[2025-05-18] MEDS: DUONEB 3 ML INH (01:09)
[2025-05-18 01:13] VITALS: BP 140/70
[2025-05-18 01:20] LABS: Urine Squamous Cell >30 /LPF (Few)
[2025-05-18 01:21] LABS: Urine Red Blood Cell 0-2 /HPF (0-2)
[2025-05-18] MEDS: DECADRON 10 MG IV (02:01)
[2025-05-18] MEDS: VIBRAMYCIN 100 MG PO (02:35)
== END 2025-05-18 02:43 | disposition home or self-care (01) ==
LOC: EMR 21:48
PROVIDERS: Emergency Medicine; EMERGENCY PHYSICIAN Emergency Medicine; FAMILY PHYSICIAN Nurse Practitioner Adult Health
DX: J45.901 Unspecified asthma with (acute) exacerbation (principal); I35.0 Nonrheumatic aortic (valve) stenosis; I10 Essential (primary) hypertension; E78.5 Hyperlipidemia, unspecified; F41.9 Anxiety disorder, unspecified; F32.A Depression, unspecified; K76.0 Fatty (change of) liver, not elsewhere classified; F17.210 Nicotine dependence, cigarettes, uncomplicated; Z79.01 Long term (current) use of anticoagulants; Z95.2 Presence of prosthetic heart valve
CPT/HCPCS: 99284; 96374; 94640; 71046; 80053; 81003; 81015; 83880; 84484; 85025; 85610; 87086; 87502; 87811; 93005; 93971

== ENCOUNTER → 2025-05-21 12:13 | Outpatient (REF) | payer MEDICARE, OTHER, SELFPAY ==
[2025-05-21 13:01] LABS: INR 2.80; PT 29.9 Sec (11.4-14.6)
== END ==
LOC: REG 12:13
PROVIDERS: ATTENDING PHYSICIAN Internal Medicine Cardiovascular Disease; FAMILY PHYSICIAN Nurse Practitioner Adult Health
DX: Z95.2 Presence of prosthetic heart valve (principal); Z79.01 Long term (current) use of anticoagulants
CPT/HCPCS: 36415; 85610

== ENCOUNTER → 2025-05-27 10:30 | Outpatient (REF) | payer MEDICARE, OTHER, SELFPAY ==
[2025-05-27 12:35] LABS: INR 3.07; PT 32.0 Sec (11.4-14.6)
== END ==
LOC: REG 10:30
PROVIDERS: ATTENDING PHYSICIAN Internal Medicine Cardiovascular Disease; FAMILY PHYSICIAN Nurse Practitioner Adult Health
DX: Z95.2 Presence of prosthetic heart valve (principal); Z79.01 Long term (current) use of anticoagulants
CPT/HCPCS: 36415; 85610

== ENCOUNTER → 2025-06-24 11:39 | Outpatient (REF) | payer MEDICARE, OTHER, SELFPAY ==
[2025-06-24 13:17] LABS: INR 6.19; PT 54.0 Sec (11.4-14.6)
== END ==
LOC: REG 11:39
PROVIDERS: ATTENDING PHYSICIAN Internal Medicine Cardiovascular Disease; FAMILY PHYSICIAN Nurse Practitioner Adult Health
DX: Z95.2 Presence of prosthetic heart valve (principal); Z79.01 Long term (current) use of anticoagulants; M79.602 Pain in left arm; M79.632 Pain in left forearm; M25.512 Pain in left shoulder
CPT/HCPCS: 36415; 72050; 73030; 82550; 85610

== ENCOUNTER → 2025-06-26 11:38 | Outpatient (REF) | payer MEDICARE, OTHER, SELFPAY ==
[2025-06-26 13:06] LABS: INR 2.00; PT 22.8 Sec (11.4-14.6)
== END ==
LOC: REG 11:38
PROVIDERS: ATTENDING PHYSICIAN Internal Medicine Cardiovascular Disease; FAMILY PHYSICIAN Nurse Practitioner Adult Health
DX: Z79.01 Long term (current) use of anticoagulants (principal)
CPT/HCPCS: 36415; 85610

== ENCOUNTER → 2025-06-30 12:40 | Outpatient (REF) | payer MEDICARE, OTHER, SELFPAY ==
[2025-06-30 14:35] LABS: INR 4.49; PT 43.0 Sec (11.4-14.6)
== END ==
LOC: REG 12:40
PROVIDERS: ATTENDING PHYSICIAN Internal Medicine Cardiovascular Disease; FAMILY PHYSICIAN Nurse Practitioner Adult Health
DX: Z95.2 Presence of prosthetic heart valve (principal); Z79.01 Long term (current) use of anticoagulants
CPT/HCPCS: 36415; 85610

== ENCOUNTER → 2025-07-07 13:13 | Outpatient (REF) | payer MEDICARE, OTHER, SELFPAY ==
[2025-07-07 14:19] LABS: INR 3.51; PT 35.5 Sec (11.4-14.6)
== END ==
LOC: REG 13:13
PROVIDERS: ATTENDING PHYSICIAN Internal Medicine Cardiovascular Disease; FAMILY PHYSICIAN Nurse Practitioner Adult Health
DX: Z95.2 Presence of prosthetic heart valve (principal); Z79.01 Long term (current) use of anticoagulants
CPT/HCPCS: 36415; 85610